=== PATIENT | female | born 1960 | race Caucasian/White ===

== ENCOUNTER 2021-06-05 14:50 | Emergency (ER) | payer MEDICAID ==
--- NOTE | 2021-06-05 15:04 | EDM.PDOC ---
ED HPI GENERAL MEDICAL PROBLEM - General Chief Complaint: Respiratory Problem Stated Complaint: COVID POSITIVE Time Seen by Provider: 06/05/21 14:55 Source of Information: Reports: Patient History Limitations: Reports: No Limitations - History of Present Illness INITIAL COMMENTS - FREE TEXT/NARRATIVE: HISTORY AND PHYSICAL: History of present illness: Patient is a 60-year-old female who presents to the emergency room after testing positive COVID-19 with home test with complaints of dizziness, nausea, vomiting, headache and since Sunday. She will have an occasional cough but denies shortness of breath. The patient states that she has lost her sense of taste and smells mold everywhere. She denies a sore throat. Patient states that she has been unable to keep anything down due to vomiting. Patient denies any fever, chills, change in vision, syncope or near syncope. Denies any chest pain or back pain. Denies any abdominal pain, nausea, vomiting, diarrhea, constipation or dysuria. Has not noted any blood in urine or stool. Review of systems: As per history of present illness and below otherwise all systems reviewed and negative. Past medical history: As per history of present illness and as reviewed below otherwise noncontributory. Surgical history: As per history of present illness and as reviewed below otherwise noncontributory. Social history: See social history for further information Family history: As per history of present illness and as reviewed below otherwise noncontributory. Physical exam: General: Well developed and well nourished. Alert and orientated x 3. Nontoxic in appearance and in no acute distress. Vital signs are stable and have been reviewed by me. Nursing notes were reviewed. HEENT: Atraumatic, normocephalic, pupils equal and reactive bilaterally, negative for conjunctival pallor or scleral icterus, mucous membranes moist, TMs normal bilaterally, throat clear, neck supple, nontender, trachea midline. No drooling or trismus noted. No meningeal signs. No hot potato voice noted. Lungs: Expiratory wheezes posterior bilaterally. No wheezes, rales, or rhonchi. Chest nontender. Normal work of breathing, no accessory muscles used. Heart: S1S2, regular rate and rhythm without overt murmur, gallops, or rubs. No JVD. No peripheral edema Abdomen: Soft, nondistended, nontender. Normoactive bowel sounds. Negative for masses or costovertebral tenderness. Skin: Intact, warm, dry. No lesions or rashes noted. Hematologic: No petechiae or purpra. Mucosa appropriate color and normal nail bed color and refill. Extremities: Atraumatic, moves all extremities per self without difficulty or deficits, negative for cords or calf pain. Neurovascular unremarkable. Neuro: Awake, alert, oriented. Cranial nerves II through XII unremarkable. Cerebellum unremarkable. Motor and sensory unremarkable throughout. Exam nonfocal. Psychiatric: Mood and affect are appropriate. Normal thought process. Answering questions appropriately. Notes: *This patient was seen and evaluated during the 2019 SARS-CoV-2 novel coronavirus pandemic period. Community viral transmission is ongoing at time of this encounter and the emergency department is operating under pandemic response procedures. As stated by the patient is a 60-year-old female who presents to the emergency department after testing positive COVID-19 with home test with complaints of dizziness, nausea, vomiting, headache and since Sunday. She will have an occasional cough but denies shortness of breath. As the patient is a smoker, non-vaccinated and has hypertension, I will work her up for COVID-19 and treat her with IV fluids, Zofran, and Toradol. The patient is agreeable with the plan. The chest x-ray IMPRESSION: No acute process. The patient's CBC is unremarkable. Patient's CMP is remarkable for an elevated AST of 294 and an elevated ALT of 426. The patient's COVID-19 results are positive. The elevated enzymes are most likely due to the positive Covid. I informed the patient of her positive COVID-19 test and her elevated enzymes. I informed the patient of her need to quarantine until released by the state department. I educated the patient on household members and the effects of COVID-19. I educated the patient on when to return to the emergency department. I prescribed Zofran 4 mg ODT every 6-8 hours as needed for nausea through instrument. The patient nausea had subsided after receiving IV fluids and Zofran in the emergency department. After discussing the risk and benefits of the monoclonal antibodies I have obtained the patient's consent for the infusion and have completed the paperwork. The patient is aware the infusion clinic will be calling her. She is agreeable with this discharge plan. I have talked with the patient about today's findings, in addition to providing specific details for plan of care. Reassessment at the time of disposition demonstrates that the patient is in no acute distress. The patient is stable for discharge, counseling was provided and we discussed in great detail signs and symptoms that would prompt them to return to the Emergency Department. Medication, follow up and supportive care measures were reviewed and discussed. Voices understanding and is agreeable to plan of care. Denies any further questions or concerns at this time. Diagnostics:CBC, CMP, EKG, CXR, COVID/FLU Therapeutics:IV fluids, Zofran, Toradol Prescription: Zofran 4 mg ODT 1 every 6-8 hours as needed for nausea Impression: COVID-19 Plan: 1. Your COVID-19 screening is positive. That means you do have the coronavirus and you are considered contagious. Your vital signs and oxygen saturation are well enough that you were able to monitor your symptoms at home. Continue to monitor for trouble breathing, new confusion or inability to arouse, bluish lips or face or any of the other symptoms we discussed -if this occurs please return to the emergency room. 1a. After we discussed the risk and benefits of the monoclonal antibodies I obtained her consent for the infusion. You will be called by the infusion clinic so please make sure you answer your telephone. 1b. You can obtain an portable oxygen saturation monitor for your finger and monitor your oxygen saturation. If it would drop below 90% please return to the emergency department. 2. Please self quarantine until cleared by [facility]. Inform any persons that you have been in contact with since you started becoming symptomatic that you have tested positive; they should be made aware and take the appropriate steps as needed. 3. You can take NyQuil during the evening to help get a restful night sleep. May alternate Tylenol and ibuprofen as needed for pain and fever management. 4. [facility] will be calling you and following up with you. The [place] COVID 19 Hotline phone number , They are open Sunday - Sunday 7am - 7pm. Follow up with your primary care provider for re-evaluation and re-testing after the 10 day quarantine and discuss when you should be seen. Definitive disposition and diagnosis as appropriate pending reevaluation and review of above. - Related Data Allergies Allergy/AdvReac Type Severity Reaction Status Date / Time No Known Allergies Allergy Verified 06/05/21 15:00 Home Meds: Home Meds Omeprazole 10 mg PO 06/05/21 [History] Propranolol [Inderal] 20 mg PO BID 06/05/21 [History] ED ROS GENERAL - Review of Systems Review Of Systems: Comprehensive ROS is negative, except as noted in HPI. ED EXAM, GENERAL - Physical Exam Exam: See Below Course - Vital Signs Last Recorded V/S: Last Vital Signs Temp 96.7 F L 06/05/21 16:53 Pulse 71 06/05/21 16:53 Resp 18 06/05/21 16:53 BP 127/67 06/05/21 16:53 Pulse Ox 98 06/05/21 16:53 - Orders/Labs/Meds Orders: Active Orders 24 hr Category Date Time Status Saline Lock Insert [OM.PC] Stat Oth 06/05/21 15:20 Ordered Labs: Laboratory Tests 06/05/21 06/05/21 06/05/21 Range/Units 15:30 15:30 15:34 WBC 2.71 L (4.0-11.0) K/uL RBC 4.58 (4.30-5.90) M/uL Hgb 14.1 (12.0-16.0) g/dL Hct 40.8 (36.0-46.0) % MCV 89.1 (80.0-98.0) fL MCH 30.8 (27.0-32.0) pg MCHC 34.6 (31.0-37.0) g/dL RDW Std Deviation 41.3 (28.0-62.0) fl RDW Coeff of Patrick 13 (11.0-15.0) % Plt Count 190 (150-400) K/uL MPV 10.90 (7.40-12.00) fL Neut % (Auto) 38.1 L (48.0-80.0) % Lymph % (Auto) 49.4 H (16.0-40.0) % Dougherty % (Auto) 10.0 (0.0-15.0) % Eos % (Auto) 1.8 (0.0-7.0) % Baso % (Auto) 0.7 (0.0-1.5) % Neut # (Auto) 1.0 L (1.4-5.7) K/uL Lymph # (Auto) 1.3 (0.6-2.4) K/uL Dougherty # (Auto) 0.3 (0.0-0.8) K/uL Eos # (Auto) 0.1 (0.0-0.7) K/uL Baso # (Auto) 0.0 (0.0-0.1) K/uL Nucleated RBC % 0.0 /100WBC Nucleated RBCs # 0 K/uL Sodium 139 (136-145) mmol/L Potassium 4.6 (3.5-5.1) mmol/L Chloride 103 (98-107) mmol/L Carbon Dioxide 26.6 (21.0-32.0) mmol/L BUN 9 (7.0-18.0) mg/dL Creatinine 0.7 (0.6-1.0) mg/dL Est Cr Clr Drug Dosing 66.75 mL/min Estimated GFR (MDRD) > 60.0 ml/min Glucose 99 (74-106) mg/dL Calcium 8.7 (8.5-10.1) mg/dL Total Bilirubin 0.6 (0.2-1.0) mg/dL AST 294 H (15-37) IU/L ALT 426 H (14-63) IU/L Alkaline Phosphatase 69 (46-116) U/L Total Protein 7.5 (6.4-8.2) g/dL Albumin 3.7 (3.4-5.0) g/dL Globulin 3.8 (2.6-4.0) g/dL Albumin/Globulin Ratio 1.0 (0.9-1.6) Influenza Type A RNA NEGATIVE (NEGATIVE) Influenza Type B RNA NEGATIVE (NEGATIVE) SARS-CoV-2 RNA (LIA) POSITIVE H (NEGATIVE) Meds: Medications Discontinued Medications Generic Name Dose Route Start Last Admin Trade Name Freq PRN Reason Stop Dose Admin Sodium Chloride 1,000 mls @ 999 mls/hr 06/05/21 15:20 06/05/21 15:40 Normal Saline IV 06/05/21 16:20 999 mls/hr .BOLUS ONE Administration Ketorolac Tromethamine 30 mg 06/05/21 15:20 06/05/21 15:40 Ketorolac 30 Mg/Ml Sdv IVPUSH 06/05/21 15:21 30 mg ONETIME ONE Administration Ondansetron HCl 4 mg 12/19/21 15:20 06/05/21 15:40 Ondansetron 4 Mg/2 Ml Sdv IVPUSH 06/05/21 15:21 4 mg ONETIME ONE Administration Sodium Chloride 10 ml 06/05/21 15:19 06/05/21 15:41 Sodium Chloride 0.9% 10 Ml Syringe FLUSH 10 ml ASDIRECTED PRN Administration Keep Vein Open Sodium Chloride 2.5 ml 06/05/21 15:19 06/05/21 15:41 Sodium Chloride 0.9% 2.5 Ml Syringe FLUSH 2.5 ml ASDIRECTED PRN Administration Keep Vein Open Departure - Departure Time of Disposition: 16:36 Disposition: Home, Self-Care 01 Condition: Good Clinical Impression: COVID-19 - Discharge Information *PRESCRIPTION DRUG MONITORING PROGRAM REVIEWED*: Not Applicable *COPY OF PRESCRIPTION DRUG MONITORING REPORT IN PATIENT [place]: Not Applicable Instructions: COVID-19: What to Do If You Are Sick- [facility] (09/01/2020) Referrals: Rogerio Nixon MD [Primary Care Provider] - Forms: ED Department Discharge Additional Instructions: The following information is given to patients seen in the emergency department who are being discharged to home. This information is to outline your options for follow-up care. We provide all patients seen in our emergency department with a follow-up referral. The need for follow-up, as well as the timing and circumstances, are variable depending upon the specifics of your emergency department visit. If you don't have a primary care physician on staff, we will provide you with a referral. We always advise you to contact your personal physician following an emergency department visit to inform them of the circumstance of the visit and for follow-up with them and/or the need for any referrals to a consulting specialist. The emergency department will also refer you to a specialist when appropriate. This referral assures that you have the opportunity for follow-up care with a specialist. All of these measure are taken in an effort to provide you with optimal care, which includes your follow-up. Under all circumstances we always encourage you to contact your private physician who remains a resource for coordinating your care. When calling for follow-up care, please make the office aware that this follow-up is from your recent emergency room visit. If for any reason you are refused follow-up, please contact the [facility] Emergency Department at and asked to speak to the emergency department charge nurse. [facility] - [facility] [address] [place] [id number] [facility] [address] [place] [address] Plan: 1. Your COVID-19 screening is positive. That means you do have the coronavirus and you are considered contagious. Your vital signs and oxygen saturation are well enough that you were able to monitor your symptoms at home. Continue to monitor for trouble breathing, new confusion or inability to arouse, bluish lips or face or any of the other symptoms we discussed -if this occurs please return to the emergency room. 1a. After we discussed the risk and benefits of the monoclonal antibodies I obtained her consent for the infusion. You will be called by the infusion clinic so please make sure you answer your telephone. 1b. You can obtain an portable oxygen saturation monitor for your finger and monitor your oxygen saturation. If it would drop below 90% please return to the emergency department. 2. Please self quarantine until cleared by [facility]. Inform any persons that you have been in contact with since you started becoming symptomatic that you have tested positive; they should be made aware and take the appropriate steps as needed. 3. You can take NyQuil during the evening to help get a restful night sleep. May alternate Tylenol and ibuprofen as needed for pain and fever management. 4. [facility] department will be calling you and following up with you. The [place] COVID 19 Hotline phone number , They are open Sunday - Sunday 7am - 7pm. Follow up with your primary care provider for re-evaluation and re-testing after the 10 day quarantine and discuss when you should be seen. Sepsis Event Note (ED) - Focused Exam Vital Signs: Vital Signs Temp Pulse Resp BP Pulse Ox 06/05/21 16:53 96.7 F L 71 18 127/67 98 06/05/21 16:05 72 121/76 06/05/21 15:01 97.4 F 78 16 168/92 H 97 - My Orders Last 24 Hours: My Active Orders 06/05/21 15:20 Saline Lock Insert [OM.PC] Stat - Assessment/Plan Last 24 Hours: My Active Orders 06/05/21 15:20 Saline Lock Insert [OM.PC] Stat
[2021-06-05] MEDS ORDERED: Sodium Chloride 0.9% 2.5 ML Syringe FLUSH PRN (15:19)
[2021-06-05] MEDS ORDERED: Sodium Chloride 0.9% 10 ML Syringe FLUSH PRN (15:19)
[2021-06-05] MEDS ORDERED: Ondansetron 4 MG/2 ML SDV IVPUSH ONE (15:20)
[2021-06-05] MEDS ORDERED: Sodium Chloride 0.9% 1,000 ML IV ONE (15:20)
[2021-06-05] MEDS ORDERED: Ketorolac 30 MG/ML SDV IVPUSH ONE (15:20)
--- NOTE | 2021-06-05 16:04 | CR ---
INDICATION: Cough TECHNIQUE: Chest 1 view. COMPARISON: None FINDINGS: The very medial aspect of the right lung apex is obscured by the chin. The lungs are otherwise clear. The heart is normal in size. The pulmonary vasculature is within normal limits. The bones are unremarkable. IMPRESSION: No acute process. Dictated by Ashley Hand MD @ 06/05/2021 4:03:19 PM (Electronically Signed)
[2021-06-05 16:11] LABS: BLOOD UREA NITROGEN,BUN 9 mg/dL (7.0-18.0); CARBON DIOXIDE,CO2 26.6 mmol/L (21.0-32.0); CHLORIDE,CL 103 mmol/L (98-107); GLUCOSE RANDOM 99 mg/dL (74-106); POTASSIUM,K 4.6 mmol/L (3.5-5.1); SODIUM,NA 139 mmol/L (136-145)
[2021-06-05 16:16] LABS: CORONAVIRUS COVID-19 NAA POSITIVE (NEGATIVE); INFLUENZA A NAA NEGATIVE (NEGATIVE); INFLUENZA B NAA NEGATIVE (NEGATIVE)
--- NOTE | 2021-06-05 18:24 | PCM.EKG ---
#1 Interpretation EKG Date: 06/05/21 Time: 15:45 EKG Interpretation Comments: Normal sinus rhythm rate of 69 normal intervals and axis no acute ischemia normal EKG
== END 2021-06-05 16:54 | disposition home or self-care (01) ==
LOC: MW.ED 14:50
DX: U07.1 COVID-19 (principal)
CPT/HCPCS: 0240U; 36415; 71045; 80053; 85025; 93005; 96374; 96375; 99284; J1885; J2405; J7030